=== PATIENT | male | born 1960 | race Caucasian/White ===

== ENCOUNTER 2018-02-23 13:23 | Emergency (ER) | payer OTHER ==
[~2018-02-23] VITALS: Ht 175.3 cm; Wt 68.0 kg
[2018-02-23 13:31] VITALS: BP 145/86; PULSE 77; RESP 16; TEMP 98.4; O2SAT 96
--- NOTE | 2018-02-23 13:42 | PD ---
HPI Chief Complaint: Injury Time Seen by Provider: 13:34 Travel History International Travel<30 days: No Contact w/Intl Traveler<30days: No Traveled to known affect area: No History of Present Illness HPI 57-year-old male presents to the emergency department for evaluation after a head injury that occurred around 1130 this morning. Patient states that he fell off the first round of a ladder onto his hands and feet. At that time, the latter came down and hit him in his head causing a laceration to the right scalp. Patient denies any loss of conscious. He does not take anticoagulants. Patient states his tetanus immunization is not up-to-date. He reports headache, 7/10, aching. No vomiting. Patient states he went to [facility] who referred him to the emergency department for CT scan. He states that he has no chronic medical problems and takes no prescribed medications. Mild severity. PFSH Past Medical History Diminished Hearing: No Tetanus Vaccination: Unknown Influenza Vaccination: No Social History Alcohol Use: Yes Tobacco Use: Yes Substance Use: No Allergies-Medications (Allergen,Severity, Reaction): Coded Allergies: No Known Allergies (Unverified , 02/23/18) Reported Meds & Prescriptions Reported Meds & Active Scripts Active No Active Prescriptions or Reported Medications Review of Systems Except as stated in HPI: all other systems reviewed are Neg Physical Exam Narrative GENERAL: Well-nourished, well-developed male patient, ambulatory. Afebrile. SKIN: Focused skin assessment warm/dry. Patient has 2 cm laceration to the right scalp. HEAD: Normocephalic. ENT: Mucosa pink and moist. No erythema or exudates. No uvular edema. No uvular , palatal, or tonsillar deviation. Airway patent. Nasal turbinates appear normal without nasal blood, purulent drainage or septal hematoma. Bilateral tympanic membranes clear without erythema or perforation. EYES: No scleral icterus. No injection or drainage. PERRLA NECK: Supple, trachea midline. No JVD or lymphadenopathy. CARDIOVASCULAR: Regular rate and rhythm without murmurs, gallops, or rubs. RESPIRATORY: Breath sounds equal bilaterally. No accessory muscle use. Lung sounds are clear to auscultation. GASTROINTESTINAL: Abdomen soft, non-tender, nondistended. MUSCULOSKELETAL: No cyanosis, or edema. BACK: Nontender without obvious deformity. No CVA tenderness. Data Data Last Documented VS Vital Signs Date Time Temp Pulse Resp B/P (MAP) Pulse Ox O2 Delivery O2 Flow Rate FiO2 02/23/18 13:35 Room Air 02/23/18 13:31 98.4 77 16 145/86 (105) 96 Orders Orders Lidocai-Epi 1%-1:100,000 Inj (Xylocaine- (02/23/18 13:45) Tetanus/Diphtheria Tox Adult (Tetanus/Di (02/23/18 13:45) Ct Brain W/O Iv Contrast(Rout) (02/23/18 ) MDM Medical Decision Making Medical Screen Exam Complete: Yes Emergency Medical Condition: Yes Medical Record Reviewed: Yes Interpretation(s) Last Impressions Head CT 02/23/18 0000 Signed Impressions: CONCLUSION: 1. Negative for acute process Differential Diagnosis Closed head injury versus intracranial abnormality versus laceration Narrative Course 57-year-old male presents to the emergency department for evaluation after a ladder hit his head, causing a laceration. He was seen at urgent care referred to the emergency department for CT scan. CT of the brain is ordered and pending. Tetanus immunization is updated. Patient gives verbal consent for laceration repair. CT of the brain is negative. Patient declines pain medication at this time. He is instructed on proper wound care. He is to return here for any acute worsening of symptoms. He verbalizes agreement. Procedures Procedure Narrative LACERATION LOCATION: right scalp LENGTH: 2 cm NUMBER OF STITCHES/LEXIE: 2 lexie REPAIR: The area of the laceration was prepped with Betadine and sterilely draped. The laceration was infiltrated with 1% lidocaine with epinephrine. The wound was copiously irrigated and explored without evidence of foreign body, tendon injury or neurovascular injury. The wound was closed using lexie. This was a single layer repair. A sterile dressing was applied. The patient was advised to keep the dressing clean and dry. Patient tolerated the procedure well. Diagnosis Primary Impression: Closed head injury Qualified Codes: S09.90XA - Unspecified injury of head, initial encounter Additional Impression: Scalp laceration Qualified Codes: S01.01XA - Laceration without foreign body of scalp, initial encounter Referrals: Primary Care Physician Patient Instructions: General Instructions, Head Injury (ED), Laceration (ED), Staple Care (ED) Additional Instructions: Clean laceration twice daily with soap and water and apply [id number] antibiotic ointment. Keep laceration clean and dry. No swimming or hot tubs until healed. Staple removal in 7-10 days. You may follow with her primary care physician return here for this. Return to the emergency department for any acute worsening of symptoms. Med/Other Pt SpecificInfo: No Change to Meds Scripts No Active Prescriptions or Reported Meds Disposition: 01 DISCHARGE HOME Condition: Stable Cathy Torres Feb 23, 2018 13:42
[2018-02-23] MEDS ORDERED: TETANUS/DIPHTHERIA TOXOID ADULT 0.5 ML VIAL IM ONE (13:45)
[2018-02-23] MEDS ORDERED: LIDOCAINE 1%/EPINEPHrine 1:100,000 SOLN 20 ML VIAL INFIL ONE (13:45)
--- NOTE | 2018-02-23 14:46 | RADRPT ---
EXAM DATE: 02/23/2018 2:36 PM EDT AGE/SEX: 57 years / Male INDICATIONS: Trauma. Hit in head with a ladder. Right head laceration and pain. CLINICAL DATA: This is the patient's initial encounter. Patient reports that signs and symptoms have been present for 1 day and indicates a pain score of 7/10. MEDICAL/SURGICAL HISTORY: None. None. RADIATION DOSE: 57.75 CTDI (mGy) COMPARISON: No prior exams available for comparison. TECHNIQUE: CT of the head without contrast. Using automated exposure control and adjustment of the mA and/or kV according to patient size, radiation dose was kept as low as reasonably achievable to ob tain optimal diagnostic quality images. FINDINGS: Cerebrum: The ventricles are normal for age. No evidence of midline shift, mass lesion, hemorrhage or acute infarction. No extraaxial fluid collections are seen. Posterior Fossa: The cerebellum and brainstem are intact. The 4th ventricle is midline. The cerebe llopontine angle is unremarkable. Extracranial: The visualized portion of the orbits is intact. Skull: The calvaria is intact. No evidence of skull fracture. CONCLUSION: 1. Negative for acute process Electronically signed by: Moreno Perdue MD 02/23/2018 2:44 PM EDT
== END 2018-02-23 15:03 | disposition home or self-care (01) ==
LOC: PHEFT 13:23
DX: S09.90XA Unspecified injury of head, initial encounter (principal); S01.01XA Laceration without foreign body of scalp, initial encounter; Z23 Encounter for immunization; Z72.0 Tobacco use; W20.8XXA Other cause of strike by thrown, projected or falling object, initial encounter; W11.XXXA Fall on and from ladder, initial encounter
CPT/HCPCS: 12001; 70450; 90471; 90714